=== PATIENT | male | born 1990 | race Hispanic/Latino ===

== ENCOUNTER 2022-11-19 04:09 | Emergency (ER) | payer OTHER, SELFPAY ==
[2022-11-19 04:15] VITALS: BP 137/78; PULSE 84; RESP 18; TEMP 36.7; O2SAT 98; BMI 29.8
[2022-11-19] MEDS: PROPARACAINE 0.5% OPHTH SOL 1 DROPS EYE-LEFT (04:22)
[2022-11-19] MEDS: FLUORESCEIN 1 MG STRIP EYE-BOTH (04:23)
--- NOTE | 2022-11-19 04:29 | ED_ITS ---
HPI - General Adult General Chief complaint: Eye Problems Stated complaint: blurry vision, redness left eye Time Seen by Provider: 11/19/22 04:11 Source: patient Mode of arrival: Ambulatory History of Present Illness HPI narrative: Patient is a 32-year-old otherwise healthy male. Approximately 1 year ago he and HI gain. Does not wear corrective lenses. A couple days ago he started to have irritation in his eyes. He thought that maybe it was the smoke in the air. It was both eyes. He woke up this morning now with left greater than right. Some redness and irritation. Some blurry vision. He initially thought that maybe there was something in his eye but on the drive here to the emergency department he feels like his symptoms have improved. Review of Systems Eyes Eyes: Reports system reviewed and no additional complaints, except as documented ENT Ears, Nose, Mouth, and Throat: Reports system reviewed and no additional complaints, except as documented Integumentary/Breasts Skin/Breast: Reports system reviewed and no additional complaints, except as documented Patient History Social History Smoking Status: Current some day smoker Smoking Status: Current some day smoker tobacco type: vaping alcohol intake frequency: holidays/special occasions only Substance Use Type: does not use Exam Initial Vital Signs Initial Vital Signs: Vital Signs Temperature 98.1 F 11/19/22 04:15 Pulse Rate 84 11/19/22 04:15 Respiratory Rate 18 11/19/22 04:15 Blood Pressure 137/78 11/19/22 04:15 Pulse Oximetry 98 11/19/22 04:15 Oxygen Delivery Method Room Air 11/19/22 04:15 Const General: cooperative, comfortable and No ill appearing [facility] Head: normal to inspection and normocephalic Eyes Periorbital: periorbital findings normal Eyelids: eyelids normal Conjunctivae: conjunctivae normal Sclera: sclerae normal Cornea: corneas normal and fluorescein used Pupils: PERRL EOM: EOM intact bilaterally Other: No foreign body noted Skin General: no rashes or lesions noted Neuro General: patient alert, patient awake and moves all extremities Course Orders Ordered: Discontinued Medications Erythromycin (Erythromycin Ophth 1 Gm Oint) 1 applic EYE-LEFT NOW ONE Stop: 11/19/22 04:30 Fluorescein Sodium (Fluorescein 1 Mg Strip) 1 mg EYE-BOTH NOW ONE Stop: 11/19/22 04:19 Last Admin: 11/19/22 04:23 Dose: 1 mg Documented By: LORENA Proparacaine HCl (Proparacaine 0.5% Ophth Keila) 1 drops EYE-LEFT NOW ONE Stop: 11/19/22 04:19 Last Admin: 11/19/22 04:22 Dose: 1 drop Documented By: LORENA Vital Signs Vital signs: Vital Signs - 8 hr 11/19/22 04:15 Temperature 98.1 F Pulse Rate 84 Respiratory Rate 18 Blood Pressure 137/78 Pulse Oximetry 98 Oxygen Delivery Method Room Air Medical Decision Making MDM Narrative Medical decision making narrative: Patient has a relatively benign exam today. There was no foreign body noted. No corneal abrasion noted. He does have some tearing of his eyes but his symptoms are not consistent with a cellulitis, foreign body, corneal abrasion. Low suspicion for glaucoma. Potentially irritation from allergens. We will provide erythromycin ointment for the antibiotic coverage and also the soothing nature of the ointment. No indication for any radiologic studies. He was given return precautions. He expressed understanding and agreement. Discharge Plan Departure Patient Disposition: Home Clinical Impression: Irritation of left eye Activity Restrictions/Additional Instructions: I do recommend that you use the erythromycin ointment today like we discussed. You can use it when you get home and then 2 other times today. Return to the emergency department for new or worsening symptoms Referrals: ProviderMarjan [Primary Care Provider] - Stand Alone Forms: Patient Portal/API
[2022-11-19] MEDS: ERYTHROMYCIN OPHTH 1 GM OINT 1 APPLIC EYE-LEFT (04:36)
== END 2022-11-19 04:44 | disposition home or self-care (01) ==
PROVIDERS: Emergency Provider Emergency Medicine
DX: H57.13 Ocular pain, bilateral (principal)
CPT/HCPCS: 99282